=== PATIENT | male | born 1960 | race Caucasian/White ===

== ENCOUNTER → 2019-08-18 | Outpatient (CLI) | payer MEDICAID ==
[2019-08-14 17:59] VITALS: BMI 25.7
[2019-08-18 14:56] VITALS: BP 156/56; PULSE 70; RESP 16
--- NOTE | 2019-08-18 15:18 | P.PAINCN ---
History of Present Illness - Reason for Consult Consult date: 08/18/19 - History of Present Illness This is an initial consultation visit for this 59 years old male with a chronic history of severe low back pain with radiation to the right lower extremity,, patient had lumbar laminectomy surgery done in 2006, after the surgery he did fairly well , later on he started complaining of severe low back pain with radiation to the right lower extremity, and it was managed previously with lumbar epidural steroid injection, and he had good pain relief from interventional pain management, currently is complaining of low back pain radiated to the right buttock and radiated to the right lower extremity positive numbness and tingling sensation, patient continued to work, he denies any fever or night sweats. He denies any change in the bowel movement or urination, no motor or sensory deficit, he continued to use and said Motrin with alternation with Mobic and he had no side effects from the medication. Past Medical History Past Medical History: Hyperlipidemia, Hypertension, Musculoskeletal Disorder, Sleep Apnea/CPAP/BIPAP Additional Past Medical History / Comment(s): Poss prostate prob. DDD, protruding/bulging discs lower back, sciatica down Rt leg occ. Unable to use CPAP. History of Any Multi-Drug Resistant Organisms: None Reported Past Surgical History: Back Surgery, Hernia Repair Additional Past Surgical History / Comment(s): Laminectomy 2006. Rt Inguinal hernia. Colonoscopy. Pain injections Past Anesthesia/Blood Transfusion Reactions: No Reported Reaction Past Psychological History: No Psychological Hx Reported Smoking Status: Current every day smoker Past Alcohol Use History: Daily Additional Past Alcohol Use History / Comment(s): Smokes 1/2 ppd avg, since 1979. 6 pack beer daily. Past Drug Use History: Marijuana Additional Drug Use History / Comment(s): Occ use - Past Family History Mother Family Medical History: Cancer Additional Family Medical History / Comment(s): Breast CA Father Family Medical History: Cancer Additional Family Medical History / Comment(s): Lung CA, asbestosis Medications and Allergies Home Medications Medication Instructions Recorded Confirmed Type Acetaminophen [Tylenol Extra 1,000 mg PO Q8H PRN 08/14/19 08/18/19 History Strength] Fexofenadine HCl [Heidi Allergy] 180 mg PO DAILY 08/14/19 08/18/19 History Hydrochlorothiazide [Hydrodiuril] 25 mg PO DAILY 08/14/19 08/18/19 History Ibuprofen [Motrin Ib] 600 - 800 mg PO Q8H PRN 08/14/19 08/18/19 History Meloxicam [Mobic] 15 mg PO DAILY 08/14/19 08/18/19 History Multivitamins, Thera [Multivitamin 1 tab PO DAILY 08/14/19 08/18/19 History (formulary)] Simvastatin [Zocor] 40 mg PO PC-SUPPER 08/14/19 08/18/19 History Allergies Allergy/AdvReac Type Severity Reaction Status Date / Time No Known Allergies Allergy Verified 08/18/19 14:41 Physical Exam Vitals: Vital Signs Pulse Resp BP Pulse Ox 08/18/19 14:50 70 16 156/56 96 REVIEW OF ORGAN SYSTEMS: CONSTITUTIONAL: No fevers or chills. No recent weight loss. EYES: denies troubles with vision. HEENT: No difficulties with hearing. No nosebleeds. No difficulty swallowing. RESPIRATORY: Denies any troubles with breathing or dyspnea on exertion. CARDIOVASCULAR: Denies any chest pain, palpitations, or recent heart attacks. GASTROINTESTINAL: Denies fatty food intolerance. Has change in bowel habits and gas bloat. GENITOURINARY: Denies any blood in urine. Has increased urinary frequency. NEUROLOGICAL: + numbness and tingling along the right distal extremities. No seizure disorders or headaches. MUSCULOSKELETAL: Has back pain. SKIN:no skin cancer. No rash. PSYCHIATRIC: Denies current depression or suicidal thoughts. ENDOCRINE: Denies current thyroid disorders. Denies any blood sugar glucose intolerance. HEME/LYMPHATIC: Denies any lumps and bumps around the neck. History of deep venous thrombosis. ALLERGY/IMMUNOLOGY: No immunoglobulin therapy. No immune deficiencies. BREAST: Denies current breast lumps, pain or nipple discharge. Physical Examinations : Constitutiona : Cooperative , not in acute distress . HEENT : nech : supple , no Lymphadenopathy , normal thyroid size . : eyes no ptosis , no icterus, no photophobia . : ENT normal of hearing , normal oropharynx , no Thrush . Respiratory : Chest clear to auscultations Bilaterally , no wheezing , no Rhonchi . Cardiovascula : regular rate and rhythem , S1 , S2 , no S3 , no S4. Gastrointestina : abdomen soft no tenderness , bowel sounds , no organomegally . Genitourinary : Defferred . neurologic : Cranial nerve II to XII intact , no focal neurological deffecit . psychatric : alert , oriented X 3 , appropriate affect , intact judgment and insight . Lymphatic : no Lymphadenopathy . musculoskeltal : Lumber spine moter stegnth lower extremities ,thigh and legs 5/5 Right side , 5/5 Left side Normal sensation in the lower extremities bilaterally deep tendon reflexes : normal Knee Jerk , normal ankle Jerk lumber facet Loading Test= positive Right , positive Left Range of motion of the lumbar spine Flexion 60 degrees, extension 30 degrees strait leg raising test = negative bilaterally Fabere test= negative bilaterally no tenderness over the Sacroiliac joint on the Right , and Left sides Results Comments: MRI of the lumbar spine extensive multilevel lumbar bulging disc disease from L1-2 to L4-5 , and there is facet joint degeneration. Foraminal stenosis Assessment and Plan Plan: Assessment and plan=1 lumbar radiculopathy. 2-lumbar degenerative disc disease. 3-lumbar spondylosis with lumbar facet arthropathy. 4-lumbar foraminal stenosis. 5-history of lumbar laminectomy surgery. Patient could benefit from right-sided transforaminal epidural steroid injection at L3 4 and L4 5 Time with Patient: Greater than 30 PQRS Measure Charge Sheet Measure #130: Documentation of Current Meds in Medical Chart: Patient's medications documented in chart Measure #226: Tobacco Use: Screen & Cessation Intervention: Pt screened for tobacco use AND intervention given Measure #111: Pneumonia Vaccination: Pneumococcal vaccine NOT administered or previously given Measure #47: Advance Care Plan: Advance care planning discussed & documented, pt chose/unable to give Measure #412: Opioid Treatment Agreement: No documentation of signed opioid treatment agreement Measure #408: Opioid Therapy Follow-up Evaluation: Patient had NO f/u eval minimum every 3 months during opioid therapy Measure #317: Preventitive Care & Scrn High Bld Press & F/U: Pre-hypertensive or hypertensive BP documented, pt will f/u with PCP Measure #128: Body Mass Index (BMI) Screening & Follow-up: BMI documented ABOVE normal parameters - f/u documented Measure #131: Pain Assessment & Follow-up: Pain positive & plan documented, Follow-up scheduled Measure #431: Unhealthy Alcohol Use Preventative Care & Scrn: Patient not identified as an unhealthy alcohol user PQRS Narrative: Smoking Status Current every day smoker Blood Pressure 156/56 Pain Intensity [Lower Back] 6 Scale Used Numeric (1 - 10) Hx Alcohol Use (MH) Yes: 6 BEERS PER DAY Home Medications: Ambulatory Orders Acetaminophen [Tylenol Extra Strength] 1,000 mg PO Q8H PRN 08/14/19 Fexofenadine HCl [Heidi Allergy] 180 mg PO DAILY 08/14/19 Hydrochlorothiazide [Hydrodiuril] 25 mg PO DAILY 08/14/19 Ibuprofen [Motrin Ib] 600 - 800 mg PO Q8H PRN 08/14/19 Meloxicam [Mobic] 15 mg PO DAILY 08/14/19 Multivitamins, Thera [Multivitamin (formulary)] 1 tab PO DAILY 08/14/19 Simvastatin [Zocor] 40 mg PO PC-SUPPER 08/14/19
== END | disposition home or self-care (01) ==
LOC: PNWHC3 14:16
PROVIDERS: ATTEND Specialist
DX: M48.061 Spinal stenosis, lumbar region without neurogenic claudication (principal); M51.16 Intervertebral disc disorders with radiculopathy, lumbar region; M47.26 Other spondylosis with radiculopathy, lumbar region; M46.96 Unspecified inflammatory spondylopathy, lumbar region; F17.200 Nicotine dependence, unspecified, uncomplicated; Z98.890 Other specified postprocedural states; Z79.1 Long term (current) use of non-steroidal anti-inflammatories (NSAID); Z79.899 Other long term (current) drug therapy
CPT/HCPCS: 99201

== ENCOUNTER 2019-09-01 07:11 | Day surgery (SDC) | payer MEDICAID ==
[~2019-09-01 07:11] MED LIST: LACTATED RINGERS 1,000 ML IV SCH
[2019-09-01 07:40] VITALS: RESP 18; TEMP 97.9
[2019-09-01] MEDS ORDERED: LIDOCAINE 1% 20 ML VIAL (10MG/ML) FOR IV START INTRADERMA ONE (07:47)
[2019-09-01] MEDS ORDERED: IV FLUID CONTINUATION 700 ML IV ONE (08:15)
--- NOTE | 2019-09-01 08:24 | P.PCN ---
Date of Procedure: 09/01/19 Procedure(s) Performed: PREOPERATIVE DIAGNOSIS: Lumbar radiculopathy POSTOPERATIVE DIAGNOSIS: Lumbar radiculopathy Attending physician: Viktor Painting M.D. PROCEDURE 1. Transforaminal epidural steroid injection under fluoroscopic guidance L3-4, L4-5 level, right side 2. Lumbar epidurogram ANESTHESIA: Local with 1% lidocaine 3 ml ; IV sedation with Versed and fentanyl , sedation time 14 minutes PROCEDURE INDICATION: The patient with low back pain and radiculopathy symptoms unresponsive to conservative treatment. Fluoroscopy was used for the procedure and fluoroscopic images were saved to the radiology portion of patient's chart. PROCEDURE DESCRIPTION / TECHNIQUE: The patient was seen and identified in the preoperative area. Risks, benefits, complications, and alternatives were discussed with the patient. The patient agreed to proceed with the procedure and signed the consent. IV was started, and vital signs were stable. Patient was taken to the OR and time out was completed. The patient was placed in the prone position on procedure table and a pillow was placed under the abdomen to reduce lumbar lordosis. The lumbosacral area was prepped and draped in the usual sterile fashion. Vital signs were closely monitored during the procedure. Conscious sedation was used. Using oblique fluoroscopy, the chin of the ``Michael dog and the skin and deeper tissues just below was localized with 1% lidocaine. Subsequently, a 22- gauge 3.5-inch spinal needle was advanced under a tunneled view fluoroscopic guidance just underneath the chin of the ``Michael dog at above-mentioned levels. Under lateral fluoroscopy, the needle was then advanced to the posterior border of the foramen. After negative aspiration of CSF and blood and with no paresthesias, 1 mL of Isovue-200 contrast dye was injected under live fluoroscopy and there was no evidence of intravascular injection. The injectate solution consisting of 7.5 mg of dexamethasone with 1 mL of 1% lidocaine was then delivered at each site. A total of 15 mg of dexamethasone was used. The needle was withdrawn intact. At the end of the procedure, skin was cleansed, and bandages were applied. COMPLICATIONS: None COMMENTS: DISPOSITION / PLANS: The patient was placed in a supine position and transferred to the recovery area in a stable condition for observation. There was no evidence of lower extremity motor or sensory deficit after the procedure. Patient was discharged from the recovery room after meeting discharge criteria. Home discharge instructions were given to the patient by the staff. The patient will follow up in clinic in 2-4 weeks.
[2019-09-01 08:35] VITALS: BP 142/78; PULSE 59
--- NOTE | 2019-09-01 09:01 | FL ---
Fluoroscopy INDICATION: Pain FINDINGS: Fluoroscopy time: 8 seconds. Images obtained: 7. IMPRESSIONS: 1. Documentation of fluoroscopy.
== END 2019-09-01 08:50 | disposition home or self-care (01) ==
LOC: ORPAIN 07:11
PROVIDERS: ATTEND Anesthesiology
DX: G89.29 Other chronic pain (principal); M54.16 Radiculopathy, lumbar region; Z79.1 Long term (current) use of non-steroidal anti-inflammatories (NSAID); E78.5 Hyperlipidemia, unspecified; I10 Essential (primary) hypertension; G47.30 Sleep apnea, unspecified; F17.210 Nicotine dependence, cigarettes, uncomplicated; Z80.3 Family history of malignant neoplasm of breast; Z80.1 Family history of malignant neoplasm of trachea, bronchus and lung; Z79.899 Other long term (current) drug therapy
CPT/HCPCS: 64483; 64484; J2250; J1100; J3010; Q9966; 99152

== ENCOUNTER 2019-09-29 07:09 | Day surgery (SDC) | payer MEDICAID ==
[2019-09-23 09:52] VITALS: BMI 25.7
[~2019-09-29 07:09] MED LIST changes: +DEXAMETHASONE SOD PHOSPHATE 10 MG/ML 1 ML VIAL ONE; +IOPAMIDOL M200 10 ML VIAL ONE; +MIDAZOLAM 2 MG/2 ML VIAL ONE; +fentaNYL (PF) 50 MCG/ML 2 ML AMP ONE
[2019-09-29] MEDS ORDERED: LIDOCAINE 1% 20 ML VIAL (10MG/ML) FOR IV START INTRADERMA ONE (07:40)
[2019-09-29 07:42] VITALS: TEMP 97.8
[2019-09-29] MEDS ORDERED: IV FLUID CONTINUATION 1,000 ML IV ONE (08:18)
--- NOTE | 2019-09-29 08:18 | P.PCN ---
Date of Procedure: 09/29/19 Procedure(s) Performed: PREOPERATIVE DIAGNOSIS: Lumbar radiculopathy POSTOPERATIVE DIAGNOSIS: Lumbar radiculopathy Attending physician: Viktor Painting M.D. PROCEDURE 1. Transforaminal epidural steroid injection under fluoroscopic guidance L3-4, L4-5 level, right side 2. Lumbar epidurogram ANESTHESIA: Local with 1% lidocaine 3 ml ; IV sedation with Versed and fentanyl , sedation time 22 minutes PROCEDURE INDICATION: The patient with low back pain and radiculopathy symptoms unresponsive to conservative treatment. Fluoroscopy was used for the procedure and fluoroscopic images were saved to the radiology portion of patient's chart. PROCEDURE DESCRIPTION / TECHNIQUE: The patient was seen and identified in the preoperative area. Risks, benefits, complications, and alternatives were discussed with the patient. The patient agreed to proceed with the procedure and signed the consent. IV was started, and vital signs were stable. Patient was taken to the OR and time out was completed. The patient was placed in the prone position on procedure table and a pillow was placed under the abdomen to reduce lumbar lordosis. The lumbosacral area was prepped and draped in the usual sterile fashion. Vital signs were closely monitored during the procedure. Conscious sedation was used. Using oblique fluoroscopy, the chin of the ``Michael dog and the skin and deeper tissues just below was localized with 1% lidocaine. Subsequently, a 22- gauge 3.5-inch spinal needle was advanced under a tunneled view fluoroscopic guidance just underneath the chin of the ``Michael dog at above-mentioned levels. Under lateral fluoroscopy, the needle was then advanced to the posterior border of the foramen. After negative aspiration of CSF and blood and with no paresthesias, 1 mL of Isovue-200 contrast dye was injected under live fluoroscopy and there was no evidence of intravascular injection. The injectate solution consisting of 7.5 mg of dexamethasone with 1 mL of 1% lidocaine was then delivered at each site. A total of 15 mg of dexamethasone was used. The needle was withdrawn intact. At the end of the procedure, skin was cleansed, and bandages were applied. COMPLICATIONS: None COMMENTS: Of note, patient has transitional vertebrae. See saved fluoroscopy images. Counting from T12 level, L4-5 and L5-L6 levels were done. This was chosen after reviewing fluoroscopy images from prior procedure. Same levels were done. DISPOSITION / PLANS: The patient was placed in a supine position and transferred to the recovery area in a stable condition for observation. There was no evidence of lower extremity motor or sensory deficit after the procedure. Patient was discharged from the recovery room after meeting discharge criteria. Home discharge instructions were given to the patient by the staff. The patient will follow up in clinic in 2-4 weeks.
[2019-09-29 08:50] VITALS: BP 148/73; PULSE 70; RESP 16
--- NOTE | 2019-09-29 09:16 | FL ---
EXAMINATION TYPE: FL guided pain mgmt statistic DATE OF EXAM: 09/29/2019 FLUOROSCOPY Fluoroscopy time of 10 seconds was used during transforaminal steroid injection. 8 image/s document/ s the procedure.
== END 2019-09-29 08:51 | disposition home or self-care (01) ==
LOC: ORPAIN 07:09
PROVIDERS: ATTEND Anesthesiology
DX: M54.16 Radiculopathy, lumbar region (principal); F17.200 Nicotine dependence, unspecified, uncomplicated
CPT/HCPCS: 64483; 64484; 99152

== ENCOUNTER → 2019-10-27 | Outpatient (CLI) | payer MEDICAID ==
[2019-10-27 15:03] VITALS: BP 133/82; PULSE 73; RESP 16
--- NOTE | 2019-10-28 13:03 | P.PAINPG ---
Subjective Progress Note Date: 10/27/19 This is a follow-up visit for this 59 years old male with a history of lumbar radiculopathy and failed back surgery syndrome and lumbar area, status post transforaminal epidural steroid injections at right side L3-4, L4-5, x2 . he reporte that his pain significantly after the injection and he is able to function better, he denies any motor or sensory deficit to denies any fever or night sweats he denies any change in the bowel movements or urination, and he is very satisfied with the result of the block he continue to use Motrin and Tylenol as needed. Objective - Vital Signs Vital signs: Vital Signs Temp Pulse 73 10/27/19 14:47 Resp 16 10/27/19 14:47 BP 133/82 10/27/19 14:47 Pulse Ox 97 10/27/19 14:47 - Exam Physical Examinations : -Constitutiona : Cooperative , not in acute distress . -HEENT : nech : supple , no Lymphadenopathy , normal thyroid size . : eyes : no ptosis , no icterus, no photophobia . - neurologic : Cranial nerve II to XII intact , no focal neurological deffecit . -psychatric : alert , oriented X 3 , appropriate affect , intact judgment and insight . -Lymphatic : no Lymphadenopathy . - musculoskeltal : Lumber spine moter stegnth lower extremities ,thigh and legs 5/5 Right side , 5/5 Left side Assessment and Plan Plan: Assessment and plan=1 lumbar radiculopathy. 2-lumbar degenerative disc disease. 3-lumbar spondylosis with lumbar facet arthropathy. 4-lumbar foraminal stenosis. 5-history of lumbar laminectomy surgery. Patient had excellent pain relief after right- sided transforaminal epidural steroid injection at L3 4 and L4 5 x2 He will follow up in the pain clinic when necessary Time with Patient: Less than 30 PQRS Measure Charge Sheet Measure #130: Documentation of Current Meds in Medical Chart: Patient's medications documented in chart Measure #226: Tobacco Use: Screen & Cessation Intervention: Pt screened for tobacco use AND intervention given Measure #111: Pneumonia Vaccination: Pneumococcal vaccine administered or pr eviously received Measure #47: Advance Care Plan: Advance care planning discussed & documented, pt chose/unable to give Measure #412: Opioid Treatment Agreement: No documentation of signed opioid treatment agreement Measure #408: Opioid Therapy Follow-up Evaluation: Patient had NO f/u eval minimum every 3 months during opioid therapy Measure #317: Preventitive Care & Scrn High Bld Press & F/U: Normal blood pressure, f/u not required Measure #128: Body Mass Index (BMI) Screening & Follow-up: BMI documented ABOVE normal parameters - f/u documented Measure #131: Pain Assessment & Follow-up: Pain positive & plan documented, Follow-up scheduled Measure #431: Unhealthy Alcohol Use Preventative Care & Scrn: Patient not identified as an unhealthy alcohol user PQRS Narrative: Smoking Status Current every day smoker Blood Pressure 133/82 Pain Intensity [Back] 2 Scale Used Numeric (1 - 10) Hx Alcohol Use (MH) Yes: 6 BEERS PER DAY Home Medications: Ambulatory Orders Acetaminophen [Tylenol Extra Strength] 1,000 mg PO Q8H PRN 08/14/19 Fexofenadine HCl [Heidi Allergy] 180 mg PO DAILY 08/14/19 Hydrochlorothiazide [Hydrodiuril] 25 mg PO QAM 08/14/19 Ibuprofen [Motrin Ib] 600 - 800 mg PO Q8H PRN 08/14/19 Meloxicam [Mobic] 15 mg PO HS 08/14/19 Multivitamins, Thera [Multivitamin (formulary)] 1 tab PO DAILY 08/14/19 Simvastatin [Zocor] 40 mg PO PC-SUPPER 08/14/19 Icy Hot Cream 1 applic TOPICAL DIRECTED PRN 10/22/19 Controlled Substance Measures - Controlled Substance Measures Is patient prescribed a controlled substance at discharge?: No
== END | disposition home or self-care (01) ==
LOC: PNWHC3 13:23
PROVIDERS: ATTEND Specialist
DX: M48.061 Spinal stenosis, lumbar region without neurogenic claudication (principal); M51.16 Intervertebral disc disorders with radiculopathy, lumbar region; M47.26 Other spondylosis with radiculopathy, lumbar region; M46.96 Unspecified inflammatory spondylopathy, lumbar region; Z98.890 Other specified postprocedural states; F17.200 Nicotine dependence, unspecified, uncomplicated; Z79.1 Long term (current) use of non-steroidal anti-inflammatories (NSAID); Z79.899 Other long term (current) drug therapy
CPT/HCPCS: 99211

== ENCOUNTER 2023-11-09 11:53 | Day surgery (SDC) | payer MEDICAID ==
[2023-11-07 12:15] VITALS: BMI 27.1
[~2023-11-09 11:53] MED LIST changes: -DEXAMETHASONE SOD PHOSPHATE 10 MG/ML 1 ML VIAL ONE; -IOPAMIDOL M200 10 ML VIAL ONE; +LIDOCAINE 1% (10MG/ML) FOR IV START INTRADERMA PRN; -MIDAZOLAM 2 MG/2 ML VIAL ONE; +ONDANSETRON 4 MG/2 ML VIAL IVP PRN; -fentaNYL (PF) 50 MCG/ML 2 ML AMP ONE
[2023-11-09] MEDS: LACTATED RINGERS 1,000 ML IV ONE (13:01)
[2023-11-09 13:33] VITALS: TEMP 97.6
[2023-11-09] MEDS ORDERED: LIDOCAINE 1% INJ 10MG/ML (20 ML MDV) ONE (14:28)
[2023-11-09] MEDS ORDERED: PROPOFOL 10 MG/ML 20 ML VIAL IV ONE (14:28)
--- NOTE | 2023-11-09 14:50 | P.PCN ---
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 Odonnell at [facility]. He was noted to have a polyp in the terminal ileum and multiple colon polyps biopsies of which revealed mantle cell lymphoma. He was subsequently seen by Dr. Garza, oncologist and [facility] and was treated with chemotherapy as well as T-cell therapy. Last colonoscopy in August 2022 showed 3 mm descending colon polyp and biopsies from the cecum and ascending colon polyp revealed mantle cell lymphoma. He scheduled for a follow-up colonoscopy today. He is asymptomatic. PROCEDURE PERFORMED: Colonoscopy biopsy. PREOPERATIVE DIAGNOSIS: Follow-up mantle cell lymphoma the colon. IV sedation per Anesthesia. PROCEDURE: After informed consent was obtained, the patient, was brought into the endoscopy unit. IV sedation was administered by Anesthesia under continuous monitoring. Digital rectal examination was normal. Initially the Olympus CF-160 flexible video colonoscope was then inserted in the rectum, gradually advanced into the cecum without any difficulty. Careful examination was performed as the scope was gradually being withdrawn. Ileocecal valve and the appendiceal orifice were visualized and appeared normal. Prep was excellent. Terminal ileum was intubated and 20 cm visualized appeared normal. Random biopsies were done from the terminal ileum. Mucosa of the cecum, ascending colon, transverse colon, appeared normal. The descending colon there was a 3 mm polyp that was removed by cold biopsy. Random biopsies were done from the cecum, ascending colon. Rest of the descending colon, sigmoid colon, and rectum appeared normal. Retroflexion was performed in the rectum and no lesions were seen. The patient tolerated the procedure well. IMPRESSION: 3 mm descending colon polyp status post-cold biopsy Rest of the colon appeared normal Normal-appearing terminal ileum RECOMMENDATIONS: Findings of this examination were discussed with the patient as well as his family. He was advised to follow with the biopsy biopsy results. Recommend repeat colonoscopy in 6 months to one year.
[2023-11-09 15:37] VITALS: BP 113/78; PULSE 78; RESP 18
== END 2023-11-09 15:38 | disposition home or self-care (01) ==
LOC: ORWHC2ENDO 11:53
PROVIDERS: ATTEND Internal Medicine Gastroenterology
DX: K63.5 Polyp of colon (principal); I10 Essential (primary) hypertension; E78.5 Hyperlipidemia, unspecified; G47.33 Obstructive sleep apnea (adult) (pediatric); F12.90 Cannabis use, unspecified, uncomplicated; K21.9 Gastro-esophageal reflux disease without esophagitis; Z79.82 Long term (current) use of aspirin; Z79.899 Other long term (current) drug therapy
CPT/HCPCS: 88305; 45380; J2001; J2704

== ENCOUNTER → 2024-06-10 | Day surgery (SDC) | payer MEDICAID ==
[~2024-06-10] MED LIST changes: -LACTATED RINGERS 1,000 ML IV SCH; -LIDOCAINE 1% (10MG/ML) FOR IV START INTRADERMA PRN; -ONDANSETRON 4 MG/2 ML VIAL IVP PRN; +PROPOFOL 10 MG/ML 20 ML VIAL IV ONE
[2024-06-10 07:33] VITALS: TEMP 97
[2024-06-10] MEDS: LACTATED RINGERS 1,000 ML IV SCH (07:43)
[2024-06-10] MEDS: IV FLUID CONTINUATION 1,000 ML IV ONE (07:50)
--- NOTE | 2024-06-10 08:34 | P.PCN ---
Date of Procedure: 06/10/24 Procedure(s) Performed: BRIEF HISTORY: Patient is a 64-year-old pleasant white male scheduled for an elective colonoscopy as a part of follow-up of mantle lymphoma involving the colon diagnosed in 2020. S/p chemotherapy and T-cell therapy by Dr. Garza at [facility]. Last colonoscopy in October 2023 revealed a 3 mm descending colon polyp but biopsy revealed hyperplastic polyp. Scheduled for follow-up colonoscopy in 6 months PROCEDURE PERFORMED: Colonoscopy. PREOPERATIVE DIAGNOSIS: Follow-up mantle cell lymphoma of the colon diagnosed in 2020. IV sedation per Anesthesia. PROCEDURE: After informed consent was obtained, the patient, was brought into the endoscopy unit. IV sedation was administered by Anesthesia under continuous monitoring. Digital rectal examination was normal. Initially the Olympus CF-160 flexible video colonoscope was then inserted in the rectum, gradually advanced into the cecum without any difficulty. Careful examination was performed as the scope was gradually being withdrawn. Ileocecal valve and the appendiceal orifice were visualized and appeared normal. Prep was excellent. Mucosa of the cecum, ascending colon, transverse colon, descending colon, sigmoid colon, and rectum appeared normal. Retroflexion was performed in the rectum and no lesions were s een. The patient tolerated the procedure well. IMPRESSION: Normal-appearing colon from rectum to cecum no evidence of colorectal neoplasia. RECOMMENDATIONS: Findings of this examination were discussed with the patient as well as his family. He was advised to have repeat colonoscopy in 1 year or sooner as per the recommendations of his oncologist.
[2024-06-10 08:39] VITALS: RESP 14
[2024-06-10 09:06] VITALS: BP 148/78; PULSE 51
== END ==
LOC: ORWHC2ENDO 07:12
PROVIDERS: ATTEND Internal Medicine Gastroenterology
DX: Z08 Encounter for follow-up examination after completed treatment for malignant neoplasm (principal); I10 Essential (primary) hypertension; E78.5 Hyperlipidemia, unspecified; K21.9 Gastro-esophageal reflux disease without esophagitis; G47.33 Obstructive sleep apnea (adult) (pediatric); Z86.010 Personal history of colon polyps; Z87.891 Personal history of nicotine dependence; Z79.899 Other long term (current) drug therapy; Z85.72 Personal history of non-Hodgkin lymphomas
CPT/HCPCS: 45378